=== PATIENT | female | born 1970 | race Caucasian/White ===

== ENCOUNTER 2018-11-12 06:22 | Emergency (ER) | payer SELFPAY ==
[~2018-11-12] VITALS: Ht 167.6 cm; Wt 127.0 kg
[2018-11-12] MEDS ORDERED: methylPREDNISolone SOD SUCC 125 MG/2 ML VL IM ONE (08:00)
[2018-11-12] MEDS ORDERED: IPRATROPIUM BROM 0.5 MG/2.5ML INH SOL NEB ONE (08:00)
[2018-11-12] MEDS ORDERED: ALBUTEROL SULF 2.5 MG/0.5ML(0.5%) NEB SOLN NEB ONE (08:00)
[2018-11-12] MEDS ORDERED: ALPRAZolam 0.5 MG TAB PO ONE (08:15)
[2018-11-12 08:50] VITALS: BP 121/56
== END 2018-11-12 09:08 | disposition home or self-care (01) ==
LOC: ER 06:22
DX: F41.1 Generalized anxiety disorder (principal); J98.01 Acute bronchospasm
CPT/HCPCS: 71046; 94640; 96372; 99283; J2930; J7611; J7644

== ENCOUNTER 2019-08-26 23:38 | Emergency (ER) | payer BC ==
[~2019-08-26] VITALS: Ht 167.6 cm; Wt 136.1 kg
[2019-08-26 23:46] VITALS: BP 156/95
[2019-08-27 02:37] LABS: Basophils # (auto) 0.1 10 ^3/uL (0-0.2); Basophils % (auto) 0.7 % (0.0-2.0); Eosinophils # (auto) 0.1 10 ^3/uL (0-0.8); Eosinophils % (auto) 0.8 % (0.0-7.0); Hematocrit 45.6 % (36.0-46.0); Hemoglobin 14.9 g/dL (12.2-16.2); Lymphocytes # (auto) 4.6 10 ^3/uL (0.4-5.4); Lymphocytes % (auto) 29.4 % (10.0-50.0); Mean Corpuscular Hemoglobin 27.6 pg (28.0-32.0); Mean Corpuscular Hgb Conc. 32.7 g/dL (32.0-36.0); Mean Corpuscular Volume 84.5 fL (80.0-100.0); Monocytes # (auto) 1.1 10 ^3/uL (0-1.3); Monocytes % (auto) 6.7 % (0.0-12.0); Neutrophils # (auto) 9.8 10 ^3/uL (1.6-8.6); Neutrophils % (auto) 62.4 % (37.0-80.0); Platelet Count (auto) 282 10^3/uL (140-450); Red Blood Cells 5.39 10^6/uL (4.0-5.20); Red Cell Distribution Width 14.6 % (11.8-14.3); White Blood Cell 15.8 10^3/uL (4.4-10.8)
[2019-08-27 02:53] LABS: Albumin 3.4 g/dL (3.4-5.0); Anion Gap 7 (5-15); Blood Urea Nitrogen 12 mg/dL (7-18); Calcium 9.2 mg/dL (8.5-10.1); Carbon Dioxide 24 mmol/L (21-32); Chloride 106 mmol/L (98-107); Glucose 103 mg/dL (74-106); Potassium 3.9 mmol/L (3.5-5.1); Sodium 137 mmol/L (136-145)
[2019-08-27 02:56] LABS: Aspartate Aminotransferase 16 U/L (15-37); BUN/Creatinine Ratio 18.2; GFR African American 122 mL/min; GFR Non-African American 101 mL/min
[2019-08-27 03:02] LABS: Alanine Aminotransferase 24 U/L (13-56); Alkaline Phosphatase 88 U/L (45-117); Bilirubin, Total 0.7 mg/dL (0.2-1.0); Total Protein 7.7 g/dL (6.4-8.2)
[2019-08-27] MEDS ORDERED: IOHEXOL 350 MG/ML 100ML IJ ONE (03:32)
== END 2019-08-27 04:58 | disposition home or self-care (01) ==
LOC: ER 23:41
DX: J40 Bronchitis, not specified as acute or chronic (principal); A49.9 Bacterial infection, unspecified; F41.9 Anxiety disorder, unspecified; R07.89 Other chest pain; R79.1 Abnormal coagulation profile; R03.0 Elevated blood-pressure reading, without diagnosis of hypertension
CPT/HCPCS: 36415; 71046; 71275; 80053; 83605; 83880; 84443; 84484; 85025; 85379; 93005; 99285; Q9967

== ENCOUNTER 2021-02-16 13:10 | Emergency (ER) | payer BC, OTHER ==
[~2021-02-16] VITALS: Ht 165.1 cm; Wt 122.5 kg
[2021-02-16 14:48] VITALS: BP 144/81
[2021-02-16] MEDS ORDERED: KETOROLAC TROMETH 60MG/2ML VIAL IM ONE (15:45)
== END 2021-02-16 16:43 | disposition home or self-care (01) ==
LOC: ER 13:10
DX: S16.1XXA Strain of muscle, fascia and tendon at neck level, initial encounter (principal); S63.92XA Sprain of unspecified part of left wrist and hand, initial encounter; R51.9 Headache, unspecified; W18.39XA Other fall on same level, initial encounter; Y93.89 Activity, other specified; Y92.89 Other specified places as the place of occurrence of the external cause; Y99.8 Other external cause status
CPT/HCPCS: 70450; 72125; 73130; 96372; 99285; J1885

== ENCOUNTER 2022-11-14 18:00 | Emergency (ER) | payer BC, OTHER ==
[~2022-11-14] VITALS: Ht 167.6 cm; Wt 140.1 kg
[2022-11-14 18:53] LABS: Basophils # (auto) 0.1 10 ^3/uL (0-0.2); Basophils % (auto) 0.9 % (0.0-2.0); Eosinophils # (auto) 0.3 10 ^3/uL (0-0.8); Eosinophils % (auto) 2.6 % (0.0-7.0); Hematocrit 45.5 % (36.0-46.0); Hemoglobin 15.2 g/dL (12.2-16.2); Lymphocytes # (auto) 1.6 10 ^3/uL (0.4-5.4); Lymphocytes % (auto) 15.5 % (10.0-50.0); Mean Corpuscular Hemoglobin 27.7 pg (28.0-32.0); Mean Corpuscular Hgb Conc. 33.4 g/dL (32.0-36.0); Mean Corpuscular Volume 82.8 fL (80.0-100.0); Monocytes # (auto) 0.7 10 ^3/uL (0-1.3); Monocytes % (auto) 7.1 % (0.0-12.0); Neutrophils # (auto) 7.7 10 ^3/uL (1.6-8.6); Neutrophils % (auto) 73.9 % (37.0-80.0); Red Blood Cells 5.49 10^6/uL (4.0-5.20); Red Cell Distribution Width 14.5 % (11.8-14.3); White Blood Cell 10.4 10^3/uL (4.4-10.8)
[2022-11-14 18:57] LABS: INR 0.94 (0.9-1.15); Partial Thromboplastin Time 27.3 sec (24.6-33.4)
[2022-11-14 19:03] LABS: Albumin 3.9 g/dL (3.4-5.0); Calcium 9.3 mg/dL (8.5-10.1); Potassium 4.1 mmol/L (3.5-5.1)
[2022-11-14 19:08] LABS: BUN/Creatinine Ratio 15.2 (10.0-20.0); Magnesium 2.5 mg/dL (1.6-2.6); Total Protein 7.2 g/dL (6.4-8.2)
[2022-11-14 19:33] LABS: Urine Bacteria NONE SEEN /hpf (None Seen); Urine Blood Negative /uL (Negative); Urine Mucus FEW (None Seen); Urine WBC 4 /hpf (0 - 5)
[2022-11-14] MEDS ORDERED: ASPirin 325 MG TAB PO ONE (20:45)
[2022-11-14] MEDS ORDERED: IODIXANOL 320MG/ML 100ML BTL IV ONE (22:49)
[2022-11-14] MEDS ORDERED: METOPROLOL SUCCINATE XL 50 MG TAB PO ONE (23:45)
[2022-11-15] MEDS ORDERED: LORazepam 0.5 MG TAB PO ONE
[2022-11-15 01:00] VITALS: BP 134/81
== END 2022-11-15 00:10 | disposition home or self-care (01) ==
LOC: ER 18:00
DX: R07.89 Other chest pain (principal); R53.1 Weakness; R06.02 Shortness of breath; R79.89 Other specified abnormal findings of blood chemistry; R79.1 Abnormal coagulation profile; I10 Essential (primary) hypertension; J45.909 Unspecified asthma, uncomplicated; Z88.0 Allergy status to penicillin; Z98.890 Other specified postprocedural states
CPT/HCPCS: 36415; 71045; 71275; 80053; 81001; 81025; 83735; 83880; 84484; 84702; 85025; 85379; 85610; 85730; 93005; 99285; Q9967